=== PATIENT | male | born 1950 | race Caucasian/White ===

== ENCOUNTER → 2016-07-23 | Outpatient (CLI) | payer MEDICARE, OTHER ==
[~2016-07-23] MED LIST: ACHYD1T PO; ASP81TEC PO; ASPI325T32 PO; ATEN-158 PO; ATEN50TA PO; CPR500T PO; CYCL10TA45 PO; DOXA2TAB2 PO; DXZS4T PO; Daptomycin IV; ENAL20TA PO; ENXP40I.4 SC; FENT-7 TD; FNST5T PO; FRSM20T PO; Fentanyl TD; HYDR-3720 PO; ISOS30TA3 PO; ISOS30TA7 PO; ISOS60TA3 PO; METH125V2 IV; METR500T PO; MTF500T PO; NITR0.4T SL; OLME20TA5 PO; OLME40TA14 PO; POLY17PO PO; PRED10TA PO; RANI-10 PO; RANI150C11 PO; RANO10003 PO; RNT150T PO; Rifampin PO; SIMV40TA4 PO; TICA90TA PO
--- NOTE | 2016-07-23 15:52 | Diagnostic Imaging Report ---
PROCEDURE: CT lumbar spine without contrast. TECHNIQUE: Multiple contiguous axial images were obtained through the lumbar spine without the use of intravenous contrast. Sagittal and coronal reformations were then performed. INDICATION: Low back and buttock pain. FINDINGS: The previous CT lumbar spine exam performed on 01/05/2015 noted postsurgical changes involving the lumbar spine including interspinous hardware at L3, L4, and L5. On this study. The orthopedic hardware noted previously is again evident and remains unchanged in position. 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 Specifically, there is narrowing of the disc space, sclerosis of the opposing endplates of L3 and L4, and slight retrolisthesis of L3 with respect to L4. On this exam, there is now near-complete if not complete obliteration of the disc space at L3-4. This may be secondary to progressive degenerative disease alone. There is no clear evidence for bony destruction to suggest osteomyelitis/discitis, but that possibility should be considered. I would recommend that MRI of the lumbar spine with and without contrast be performed for additional study. 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 This seems similar to the prior exam. Also, in the interval since the prior exam, greater vacuum disc formation has developed at the L2-3 level. The trefoil stenosis at this level seen previously has not changed significantly, however. The remainder of the lumbar spine seems stable as well. There is no fracture or acute bony abnormality identified. There is no sign of a paraspinal mass. The stent within the right renal artery noted previously is again evident. IMPRESSION: 1. In the interval since the previous exam, near-complete obliteration of the disc space at L3-4 has developed. While this may be secondary to progressive degenerative disease alone, the possibility that there is an element of osteomyelitis/discitis present should certainly be considered. Recommendations as above. 2. There is greater vacuum disc formation at L2-3 than noted on the prior exam, but the trefoil stenosis at this level does not seem to have changed significantly. 3. The remainder of the lumbar spine is unremarkable for a new area of spinal stenosis or nerve root encroachment. 4. The orthopedic hardware involving the spinous processes of L3, L4, and L5 seen previously appears stable. 5. These results were discussed with Dr. Page. Dictated by: Dictated on workstation # [id number]
== END ==
LOC: RAD 14:12
PROVIDERS: ATTEND Family Medicine
DX: M51.36 Other intervertebral disc degeneration, lumbar region (principal)
CPT/HCPCS: 72131

== ENCOUNTER → 2017-01-15 | Outpatient (CLI) | payer MEDICARE, OTHER ==
--- NOTE | 2017-01-15 10:31 | Diagnostic Imaging Report ---
PROCEDURE: US abdomen complete. TECHNIQUE: Multiple real-time grayscale images were obtained over the abdomen in various projections. INDICATION: Anemia FINDINGS: The area of the pancreas is obscured by bowel gas. The liver demonstrates fairly homogeneous parenchyma with no focal lesion seen. There is hepatopedal flow in the portal vein. The gallbladder has been removed. The CBD is obscured. There is a small amounts of ascites in the upper abdomen around the liver and the spleen. The spleen is significantly enlarged measuring 21 x 10 x 9 CM in size. No focal lesion with homogeneous parenchyma is seen in the spleen. The right kidney is 12.4 and the left kidney is 11.5 CM in length. Simple cyst measuring 4.6 CM in the upper to mid right kidney is seen. No hydronephrosis. The abdominal aorta and IVC are largely obscured by bowel gas. IMPRESSION: 1. Marked splenomegaly. 2. Mild upper abdominal ascites. Dictated by: Dictated on workstation # [id number]
== END ==
LOC: RAD 08:46
PROVIDERS: ATTEND Internal Medicine Hematology & Oncology
DX: R16.1 Splenomegaly, not elsewhere classified (principal); D61.818 Other pancytopenia
CPT/HCPCS: 76700

== ENCOUNTER → 2018-06-10 | Outpatient (CLI) | payer MEDICARE, OTHER ==
--- NOTE | 2018-06-10 14:41 | Diagnostic Imaging Report ---
INDICATION: Disorder of bone. COMPARISON: None. FINDINGS: The bone mineral density of the hips and spine was measured. There are no prior studies available for comparison. The total T-score for the spine is 3.2. The total T-score for the left hip is -0.8 and for the right hip 0.2. The T-score for the right femoral neck is -0.2. All of these values are within normal limits. However, the T-score for the left femoral neck is -1.5, and this does indicate osteopenia. FINDINGS: AP Spine L1-L4: [BMD (g/cm2): 1.623] [T-Score: 3.2] [Z-Score: 2.9] [BMD Previous: N/A] [BMD % Change: N/A] LT Hip Neck: [BMD (g/cm2): 0.874] [T-Score: -1.5] [Z-Score: -0.9] LT Hip Total: [BMD (g/cm2):0.989] [T-Score:-0.8] [Z-Score: -0.6] [BMD Previous: N/A] [BMD % Change: N/A] RT Hip Neck: [BMD (g/cm2):1.038] [T-Score:-0.2] [Z-Score:0.4] RT Hip Total: [BMD (g/cm2):1.127] [T-score:0.2] [Z-Score:0.3] [BMD Previous:N/A] [BMD % Change:N/A] *Indicates significant change from prior examination based on 95% confidence level. World Health Organization criteria for BMD interpretation classify patients as Normal (T-score at or above -1.0), Osteopenic (T-score between -1.0 and -2.5) or Osteoporotic (T-score at or below -2.5). LIMITATIONS AND MODIFICATION: None. FRACTURE RISK (FRAX SCORE): The ten year probability of (%): Major Osteoporotic Fracture: [N/A] Hip Fracture: [N/A] IMPRESSION: 1. The bone mineral density of the spine, both total hips, and the right femoral neck is within normal limits. 2. The T-score for the left femoral neck does indicate osteopenia. 3. See below National Osteopor[employer] guidelines on when to potentially initiate pharmacologic therapy. Based on the National Osteoporosis [employer] Guidelines, pharmacologic treatment should be initiated in any of the following, unless clinical conditions suggest otherwise: * Any patient with prior fragility fracture of the hip or vertebrae. A spine fracture indicates 5X risk for subsequent spine fracture and 2X risk for subsequent hip fracture. * Osteoporosis (T-score <-2.5). * Postmenopausal women and men age 50 and older with low bone mass/osteopenia (T-score between -1.0 and -2.5) by DXA and 10-year major osteoporotic fracture greater than 20% or a 10-year probability of hip fracture greater than 3%. These fracture risks are supplied above in the FRAX score, if applicable. * Clinician judgement and/or patient preferences may indicate treatment for people with 10-year fracture probabilities above or below these levels. Dictated by: Dictated on workstation # [id number]
== END ==
LOC: RAD 09:48
PROVIDERS: ATTEND Nurse Practitioner Family
DX: M85.88 Other specified disorders of bone density and structure, other site (principal); K75.81 Nonalcoholic steatohepatitis (NASH); K72.90 Hepatic failure, unspecified without coma; I85.00 Esophageal varices without bleeding; E55.9 Vitamin D deficiency, unspecified; M89.9 Disorder of bone, unspecified
CPT/HCPCS: 77080

== ENCOUNTER 2018-06-20 10:21 | Outpatient (RCR) | payer MEDICARE, OTHER | END 2018-07-01 | disposition home or self-care (01) | LOC: CR 10:21 | PROVIDERS: ATTEND Family Medicine | DX: Z48.812 Encounter for surgical aftercare following surgery on the circulatory system (principal); Z95.5 Presence of coronary angioplasty implant and graft | CPT/HCPCS: 93798 ==

== ENCOUNTER 2018-12-23 19:14 | Inpatient (IN) | payer MEDICARE, OTHER | END 2018-12-26 13:35 | disposition other institution (70) | LOC: 4TH 12-26 13:35 → ER 19:14 → 4TH 20:35 | DX: A41.9 Sepsis, unspecified organism (principal); R65.20 Severe sepsis without septic shock; L03.115 Cellulitis of right lower limb; E87.2 Acidosis; E11.65 Type 2 diabetes mellitus with hyperglycemia; E11.621 Type 2 diabetes mellitus with foot ulcer; L97.419 Non-pressure chronic ulcer of right heel and midfoot with unspecified severity; S80.821A Blister (nonthermal), right lower leg, initial encounter; I10 Essential (primary) hypertension; I25.10 Atherosclerotic heart disease of native coronary artery without angina pectoris; M43.16 Spondylolisthesis, lumbar region; M48.061 Spinal stenosis, lumbar region without neurogenic claudication; G25.0 Essential tremor; Z96.642 Presence of left artificial hip joint; Z98.1 Arthrodesis status; Z79.84 Long term (current) use of oral hypoglycemic drugs; Z95.5 Presence of coronary angioplasty implant and graft ==